=== PATIENT | male | born 1995 | race Caucasian/White ===

== ENCOUNTER → 2017-03-10 19:20 | Emergency (ER) | payer BC ==
[2017-03-10 18:14] LABS: INFLUENZA A NEG (NEG); INFLUENZA B NEG (NEG)
[~2017-03-10 19:20] MED LIST: NO MEDICATIONS
== END | disposition home or self-care (01) ==
LOC: CFTX 19:20
PROVIDERS: Emergency Medicine
DX: J11.1 Influenza due to unidentified influenza virus with other respiratory manifestations (principal); F17.210 Nicotine dependence, cigarettes, uncomplicated
CPT/HCPCS: 87651; 87804; 99283